=== PATIENT | female | born 1995 | race Caucasian/White ===

== ENCOUNTER 2017-09-08 03:57 | Emergency (ER) | payer OTHER ==
[~2017-09-08] VITALS: Ht 165.1 cm; Wt 46.0 kg
[~2017-09-08 03:57] MED LIST: PRED20 PO
[2017-09-08 03:59] VITALS: BP 138/86; PULSE 101; RESP 16; TEMP 98; O2SAT 98
[2017-09-08] MEDS ORDERED: ONDANSETRON ODT 4 MG TAB PO ONE (04:15)
[2017-09-08] MEDS ORDERED: ZOFR4TAB3 SL (04:57)
--- NOTE | 2017-09-08 04:58 | PD ---
HPI . GI upset Chief Complaint: GI Complaint Time Seen by Provider: 04:09 Travel History International Travel<30 days: No Contact w/Intl Traveler<30days: No Traveled to known affect area: No History of Present Illness HPI This patient presents with chief complaint of an upset stomach. Onset was a little over 24 hours ago. She has had a total number of 3 episodes of emesis. She also complains of loose stools.. Her baby is here also with GI symptoms. PFSH Past Medical History ADHD: No Anxiety: Yes Depression: Yes Cancer: No Cardiovascular Problems: No Diabetes: No Diminished Hearing: No Genitourinary: Yes (PCOS ) Medical other: Yes (PTSD, AUTISM ) Psychiatric: Yes (ADD) Immunizations Current: Yes Migraines: No Seizures: Yes (AT AGE 1 OR 2 SEIZURES DUE TO AN ELEVATED TEMP) Thyroid Disease: No Ulcer: No ?: Not LMP: 1 WEEK AGO Tubal Ligation: Yes Past Surgical History Appendectomy: No Cholecystectomy: No Other Surgery: Yes (LAP. UTERINE CYST REMOVAL, CARPAL TUNNEL RELEASE ) Social History Alcohol Use: No Tobacco Use: No Substance Use: No Allergies-Medications (Allergen,Severity, Reaction): Coded Allergies: metronidazole (Unverified Allergy, Severe, Anaphylaxis, 09/08/17) aspartame (Verified Allergy, Unknown, 09/08/17) azithromycin (Verified Allergy, Unknown, 09/08/17) *MDRO Multi-Drug Resistant Organism (Verified Adverse Reaction, Unknown, ) MRSA Reported Meds & Prescriptions Reported Meds & Active Scripts Active No Active Prescriptions or Reported Medications Review of Systems Except as stated in HPI: all other systems reviewed are Neg General / Constitutional: No: Fever, Chills Gastrointestinal: Positive: Nausea, Vomiting, Diarrhea, Abdominal Pain Genitourinary: No: Urgency, Frequency, Dysuria Physical Exam Narrative GENERAL: Awake and alert and in no acute distress. SKIN: warm/dry. HEAD: Normocephalic. Atraumatic. EYES: Pupils equal and round. No scleral icterus. No injection or drainage. ENT: No nasal bleeding or discharge. Mucous membranes pink and moist. NECK: Trachea midline. Full range of motion without pain.. CARDIOVASCULAR: Regular rate and rhythm. RESPIRATORY: No accessory muscle use. Clear to auscultation. Breath sounds equal bilaterally. GASTROINTESTINAL: Abdomen soft. Nontender. Bowel sounds present. Nondistended. MUSCULOSKELETAL: No obvious deformities. NEUROLOGICAL: Awake and alert. No obvious cranial nerve deficits. Motor grossly within normal limits. Normal speech. PSYCHIATRIC: Appropriate mood and affect; insight and judgment normal. Data Data Last Documented VS Vital Signs Date Time Temp Pulse Resp B/P (MAP) Pulse Ox O2 Delivery O2 Flow Rate FiO2 09/08/17 03:59 98.0 101 16 138/86 (103) 98 Room Air Orders Orders Ondansetron Odt (Zofran Odt) (09/08/17 04:15) [facility] Medical Decision Making Medical Screen Exam Complete: Yes Emergency Medical Condition: Yes Differential Diagnosis Differential diagnosis includes but is not limited to viral gastritis, food poisoning, pancreatitis, pneumonia, hepatitis, acute coronary syndrome, Narrative Course This patient presents with a chief complaint of nausea, vomiting and diarrhea. She appears well-hydrated. Her abdomen is soft and nontender. She has been treated here with Zofran. Diagnosis Primary Impression: Gastroenteritis Patient Instructions: Gastroenteritis (DC), General Instructions Med/Other Pt SpecificInfo: Prescription(s) given Scripts Ondansetron Odt (Zofran Odt) 4 Mg Tab 4 MG SL Q6HR Y for Nausea/Vomiting, #6 TAB 0 Refills Prov: Urmila Rosenberg MD 09/08/17 Disposition: 01 DISCHARGE HOME Condition: Stable Urmila Rosenberg MD Sep 08, 2017 04:58
== END 2017-09-08 05:12 | disposition home or self-care (01) ==
LOC: NEPE 03:57
DX: K52.9 Noninfective gastroenteritis and colitis, unspecified (principal)
CPT/HCPCS: 99283